=== PATIENT | male | born 1970 | race Caucasian/White ===

== ENCOUNTER 2020-08-04 20:50 | Emergency (ER) | payer OTHER ==
[2020-08-04 21:04] VITALS: BP 126/75; PULSE 66; TEMP 97.6; BMI 29.9
[2020-08-04] MEDS ORDERED: IBUPROFEN 600 MG TABLET (FP) PO ONE ×2 (22:35→22:39)
== END 2020-08-04 23:05 | disposition home or self-care (01) ==
LOC: JER 20:50
PROC: 2W3QX1Z Immobilization of Right Lower Leg using Splint (ICD-10-PCS; principal; 2020-08-04)
DX: S82.892A Other fracture of left lower leg, initial encounter for closed fracture (principal)
CPT/HCPCS: 73610-TC-RT-FY; 73630-TC-RT-FY; 99284-25